=== PATIENT | female | born 1950 | race Caucasian/White ===

== ENCOUNTER 2021-05-27 09:24 | Inpatient (IN) | payer MEDICARE ==
[2021-05-27] MEDS ORDERED: Ondansetron PF 4 MG/2 ML Vial ONE (10:03)
[2021-05-27 10:08] LABS: Hemoglobin 13.3 g/dL (12.0-15.5); Mean Corpuscular HGB CONC 33.2 g/dL (32.0-36.0); Mean Corpuscular Volume 96.4 fl (81.6-98.3); Mean Platelet Volume 12.2 fl (7.4-10.4); Platelet Count 120 10x3/uL (150-450); RBC Distribution Width 15.3 % (11.5-14.5); Red Blood Cell (RBC) Count 4.16 10x6/uL (3.90-5.03)
[2021-05-27 10:10] LABS: MDiff Complete? YES
[2021-05-27 10:18] LABS: ALT (SGPT) 51 U/L (8-55); AST (SGOT) 47 U/L (5-34); Albumin 3.8 g/dL (3.4-4.8); Alkaline Phosphatase 124 U/L (40-110); Anion Gap 18 mmol/L (10-20); BUN (Urea Nitrogen) 22 mg/dL (9.8-20.1); Bilirubin, Total 0.8 mg/dL (0.2-1.2); Calc. Creatinine Clearance 0 mL/min (70-130); Calcium 8.9 mg/dL (7.8-10.44); Carbon Dioxide 24 mmol/L (23-31); Chloride 101 mmol/L (98-107); Globulin 2.5 g/dL (2.4-3.5); Glucose 143 mg/dL (83-110); Lipase 174 U/L (8-78); Potassium 3.7 mmol/L (3.5-5.1); Protein, Total 6.3 g/dL (5.8-8.1); Sodium 139 mmol/L (136-145)
[2021-05-27] MEDS ORDERED: Promethazine HCl 25 MG/ML VIAL ONE (10:24)
[2021-05-27 10:39] LABS: Band 4 % (5-11); Lymphocytes 13 % (21-51); Monocytes 14 % (0-10); Neutrophil 69 % (42-75)
[2021-05-27 10:41] LABS: Platelet Morphology Comment Appears Decreased
[2021-05-27 10:42] LABS: RBC Morphology Normal
[2021-05-27] MEDS ORDERED: Diltiazem 125 MG/25 ML ONE (10:46)
[2021-05-27 11:05] LABS: Magnesium 2.1 mg/dL (1.6-2.6)
[2021-05-27] MEDS ORDERED: Azithromycin 500 MG VIAL ONE (13:50)
[2021-05-27] MEDS ORDERED: cefTRIAXone\\ROCEPHIN 2 GM VIAL ONE ×2 (13:50)
[2021-05-27] MEDS ORDERED: Diltiazem 125 MG in Sodium Chloride 0.9% 100 ML IVPB SCH (14:00)
[2021-05-27 14:01] LABS: SARS-CoV-2 NAA Rapid Test DETECTED (NotDetected)
[2021-05-27] MEDS ORDERED: Acetaminophen 325 MG TAB PO PRN (14:05)
[2021-05-27] MEDS ORDERED: Promethazine HCl 12.5 MG in Sodium Chloride 0.9% 50 ML IVPB PRN (14:07)
[2021-05-27] MEDS ORDERED: Lactated Ringer's 1,000 ML IV SCH (14:15)
[2021-05-27] MEDS ORDERED: Guaifenesin DM 100-10/5 ML UDCUP PO PRN (14:28)
[2021-05-27 15:03] LABS: Troponin I 0.012 ng/mL (< 0.028)
[2021-05-27 17:31] VITALS: TEMP 99
[2021-05-27 17:53] LABS: Troponin I 0.011 ng/mL (< 0.028)
[2021-05-27] MEDS ORDERED: Ventolin HFA Inhaler 60 PUFF INHALER INH PRN (19:00)
[2021-05-27 20:02] VITALS: BP 138/69
[2021-05-27] MEDS ORDERED: guaiFENesin ER 600 MG TAB PO SCH (21:00)
[2021-05-27] MEDS ORDERED: valACYclovir 500 MG TAB PO SCH (21:00)
[2021-05-27] MEDS ORDERED: Carvedilol 3.125 MG TAB PO SCH (21:00)
[2021-05-27] MEDS ORDERED: Apixaban 5 MG TAB PO SCH (21:00)
[2021-05-27] MEDS ORDERED: Flecainide 50 MG TAB PO SCH (21:00)
[2021-05-28] MEDS ORDERED: Ascorbic Acid 500 mg Chewable Tablet PO SCH (09:00)
[2021-05-28] MEDS ORDERED: Zinc Sulfate 220 MG CAP PO SCH (09:00)
[2021-05-28] MEDS ORDERED: Levothyroxine Sodium 75 MCG TAB PO SCH (09:00)
[2021-05-28] MEDS ORDERED: Cholecalciferol 1,000 UNITS (25 MCG) TAB PO SCH (09:00)
[2021-05-28] MEDS ORDERED: cefTRIAXone\\ROCEPHIN 2 GM in Sodium Chloride 0.9% 100 ML IVPB SCH (13:30)
[2021-05-28] MEDS ORDERED: Azithromycin 500 MG in Sodium Chloride 0.9% 250 ML 250 ML IVPB SCH (14:00)
== END 2021-05-27 20:10 | disposition short-term general hospital (02) | DRG 177 ==
LOC: CSHERS 09:24 → CSHTELE 14:19
PROVIDERS: ADMIT Family Medicine; ATTEND Family Medicine
PROC: 8E0ZXY6 Isolation (ICD-10-PCS; principal; 2021-05-27)
DX: U07.1 COVID-19 (principal); J12.82 Pneumonia due to coronavirus disease 2019; I48.91 Unspecified atrial fibrillation; E86.0 Dehydration; I10 Essential (primary) hypertension; E78.5 Hyperlipidemia, unspecified; E03.9 Hypothyroidism, unspecified; F32.A Depression, unspecified; G25.81 Restless legs syndrome; R91.1 Solitary pulmonary nodule; J45.909 Unspecified asthma, uncomplicated; Z85.3 Personal history of malignant neoplasm of breast; Z90.13 Acquired absence of bilateral breasts and nipples; Z85.72 Personal history of non-Hodgkin lymphomas; Z79.01 Long term (current) use of anticoagulants; Z88.8 Allergy status to other drugs, medicaments and biological substances; Z90.49 Acquired absence of other specified parts of digestive tract; Z90.710 Acquired absence of both cervix and uterus; Z90.89 Acquired absence of other organs; Z79.899 Other long term (current) drug therapy; Z87.891 Personal history of nicotine dependence; Z92.21 Personal history of antineoplastic chemotherapy
CPT/HCPCS: 0240U; 36415; 70450; 71045; 74177; 80053; 83605; 83690; 83735; 83880; 84443; 84484; 85025; 87040; 93005; 93306; J0456; J0696; J2405; J2550

== ENCOUNTER 2024-05-23 08:02 | Outpatient (CLI) | payer MEDICARE ==
[2024-05-23] MEDS ORDERED: Iopamidol 300 61% 100 ML VIAL FS ONE (11:32)
== END 2024-05-23 08:03 | disposition home or self-care (01) ==
LOC: CSHCT 08:02
PROVIDERS: ATTEND Internal Medicine Hematology & Oncology
DX: C82.09 Follicular lymphoma grade I, extranodal and solid organ sites (principal); R91.8 Other nonspecific abnormal finding of lung field
CPT/HCPCS: 36415; 70491; 71260; 74177; 82565; Q9967